=== PATIENT | male | born 1955 | race Two or more races ===

== ENCOUNTER 2021-04-25 13:30 | Outpatient (CLI) | payer MEDICARE | END 2021-04-25 23:59 | disposition home or self-care (01) | LOC: MSC 13:30 | PROVIDERS: ATTEND Anesthesiology | DX: M51.26 Other intervertebral disc displacement, lumbar region (principal); M47.27 Other spondylosis with radiculopathy, lumbosacral region; M40.299 Other kyphosis, site unspecified; M62.830 Muscle spasm of back; G89.4 Chronic pain syndrome; M25.561 Pain in right knee; M25.562 Pain in left knee; Z79.891 Long term (current) use of opiate analgesic; Z79.1 Long term (current) use of non-steroidal anti-inflammatories (NSAID); F17.210 Nicotine dependence, cigarettes, uncomplicated ==

== ENCOUNTER 2021-05-30 13:10 | Outpatient (CLI) | payer MEDICARE | END 2021-05-30 23:59 | disposition home or self-care (01) | LOC: MSC 13:10 | PROVIDERS: ATTEND Anesthesiology | DX: M51.26 Other intervertebral disc displacement, lumbar region (principal); M47.27 Other spondylosis with radiculopathy, lumbosacral region; M40.299 Other kyphosis, site unspecified; M62.830 Muscle spasm of back; G89.4 Chronic pain syndrome; M25.561 Pain in right knee; M25.562 Pain in left knee; Z79.891 Long term (current) use of opiate analgesic; Z79.1 Long term (current) use of non-steroidal anti-inflammatories (NSAID) ==

== ENCOUNTER 2021-07-04 13:00 | Outpatient (CLI) | payer MEDICARE | END 2021-07-04 23:59 | disposition home or self-care (01) | LOC: MSC 13:00 | PROVIDERS: ATTEND Anesthesiology | DX: M51.26 Other intervertebral disc displacement, lumbar region (principal); M47.27 Other spondylosis with radiculopathy, lumbosacral region; M40.299 Other kyphosis, site unspecified; M62.830 Muscle spasm of back; G89.4 Chronic pain syndrome; M25.562 Pain in left knee; M25.561 Pain in right knee; Z79.891 Long term (current) use of opiate analgesic ==

== ENCOUNTER 2021-08-08 11:37 | Outpatient (CLI) | payer MEDICARE | END 2021-08-08 23:59 | disposition home or self-care (01) | LOC: MSC 11:37 | PROVIDERS: ATTEND Anesthesiology | DX: G89.4 Chronic pain syndrome (principal); M25.561 Pain in right knee; Z99.89 Dependence on other enabling machines and devices; M51.26 Other intervertebral disc displacement, lumbar region; M47.27 Other spondylosis with radiculopathy, lumbosacral region; M40.299 Other kyphosis, site unspecified; M62.830 Muscle spasm of back; M25.562 Pain in left knee; F25.9 Schizoaffective disorder, unspecified; Z79.1 Long term (current) use of non-steroidal anti-inflammatories (NSAID); Z79.891 Long term (current) use of opiate analgesic ==

== ENCOUNTER 2021-09-05 13:10 | Outpatient (CLI) | payer MEDICARE | END 2021-09-05 23:59 | disposition home or self-care (01) | LOC: MSC 13:10 | PROVIDERS: ATTEND Anesthesiology | DX: M51.26 Other intervertebral disc displacement, lumbar region (principal); M47.27 Other spondylosis with radiculopathy, lumbosacral region; M40.299 Other kyphosis, site unspecified; M62.830 Muscle spasm of back; G89.4 Chronic pain syndrome; M25.561 Pain in right knee; M25.562 Pain in left knee; F17.210 Nicotine dependence, cigarettes, uncomplicated; Z79.891 Long term (current) use of opiate analgesic; Z79.1 Long term (current) use of non-steroidal anti-inflammatories (NSAID) ==

== ENCOUNTER → 2021-10-03 | Outpatient (CLI) | payer MEDICARE | END | disposition home or self-care (01) | LOC: MSC 13:30 | PROVIDERS: ATTEND Anesthesiology | DX: M51.26 Other intervertebral disc displacement, lumbar region (principal); M47.27 Other spondylosis with radiculopathy, lumbosacral region; M40.299 Other kyphosis, site unspecified; M62.830 Muscle spasm of back; G89.4 Chronic pain syndrome; M25.561 Pain in right knee; M25.562 Pain in left knee; F17.210 Nicotine dependence, cigarettes, uncomplicated; Z79.891 Long term (current) use of opiate analgesic ==

== ENCOUNTER → 2021-10-31 | Outpatient (CLI) | payer MEDICARE | END | disposition home or self-care (01) | LOC: MSC 13:00 | PROVIDERS: ATTEND Anesthesiology | DX: M51.26 Other intervertebral disc displacement, lumbar region (principal); M47.27 Other spondylosis with radiculopathy, lumbosacral region; M40.299 Other kyphosis, site unspecified; M62.830 Muscle spasm of back; G89.4 Chronic pain syndrome; M25.561 Pain in right knee; M25.562 Pain in left knee; F20.9 Schizophrenia, unspecified; Z76.0 Encounter for issue of repeat prescription; Z79.891 Long term (current) use of opiate analgesic ==

== ENCOUNTER 2021-12-12 10:55 | Outpatient (CLI) | payer MEDICARE | END 2021-12-12 23:59 | disposition home or self-care (01) | LOC: MSC 10:55 | PROVIDERS: ATTEND Anesthesiology | DX: M51.26 Other intervertebral disc displacement, lumbar region (principal); M47.27 Other spondylosis with radiculopathy, lumbosacral region; M40.299 Other kyphosis, site unspecified; M62.830 Muscle spasm of back; G89.4 Chronic pain syndrome; M25.561 Pain in right knee; M25.562 Pain in left knee; Z79.891 Long term (current) use of opiate analgesic; Z79.1 Long term (current) use of non-steroidal anti-inflammatories (NSAID) ==

== ENCOUNTER 2022-01-09 11:30 | Outpatient (CLI) | payer MEDICARE | END 2022-01-09 23:59 | disposition home or self-care (01) | LOC: MSC 11:30 | PROVIDERS: ATTEND Anesthesiology | DX: M51.26 Other intervertebral disc displacement, lumbar region (principal); M47.27 Other spondylosis with radiculopathy, lumbosacral region; M40.299 Other kyphosis, site unspecified; M62.830 Muscle spasm of back; G89.4 Chronic pain syndrome; M25.561 Pain in right knee; M25.562 Pain in left knee; Z79.891 Long term (current) use of opiate analgesic; Z79.1 Long term (current) use of non-steroidal anti-inflammatories (NSAID) ==

== ENCOUNTER 2022-02-06 11:02 | Outpatient (CLI) | payer MEDICARE | END 2022-02-06 23:59 | disposition home or self-care (01) | LOC: MSC 11:02 | PROVIDERS: ATTEND Anesthesiology | DX: M51.26 Other intervertebral disc displacement, lumbar region (principal); M47.27 Other spondylosis with radiculopathy, lumbosacral region; M40.299 Other kyphosis, site unspecified; M62.830 Muscle spasm of back; G89.4 Chronic pain syndrome; M25.561 Pain in right knee; M25.562 Pain in left knee; Z79.891 Long term (current) use of opiate analgesic; Z79.1 Long term (current) use of non-steroidal anti-inflammatories (NSAID); F17.210 Nicotine dependence, cigarettes, uncomplicated ==

== ENCOUNTER 2022-03-06 11:45 | Outpatient (CLI) | payer MEDICARE | END 2022-03-06 23:59 | disposition home or self-care (01) | LOC: MSC 11:45 | PROVIDERS: ATTEND Anesthesiology | DX: M51.26 Other intervertebral disc displacement, lumbar region (principal); M47.27 Other spondylosis with radiculopathy, lumbosacral region; M40.299 Other kyphosis, site unspecified; M62.830 Muscle spasm of back; G89.4 Chronic pain syndrome; M25.561 Pain in right knee; M25.562 Pain in left knee; Z79.891 Long term (current) use of opiate analgesic; Z79.1 Long term (current) use of non-steroidal anti-inflammatories (NSAID); F17.210 Nicotine dependence, cigarettes, uncomplicated ==

== ENCOUNTER 2022-07-24 11:30 | Outpatient (CLI) | payer MEDICARE | END 2022-07-24 23:59 | disposition home or self-care (01) | LOC: MSC 11:30 | PROVIDERS: ATTEND Anesthesiology | DX: M51.26 Other intervertebral disc displacement, lumbar region (principal); M47.27 Other spondylosis with radiculopathy, lumbosacral region; M40.299 Other kyphosis, site unspecified; M62.830 Muscle spasm of back; G89.4 Chronic pain syndrome; M25.561 Pain in right knee; M25.562 Pain in left knee; Z76.0 Encounter for issue of repeat prescription; Z79.891 Long term (current) use of opiate analgesic; Z79.1 Long term (current) use of non-steroidal anti-inflammatories (NSAID); Z79.899 Other long term (current) drug therapy ==

== ENCOUNTER 2022-09-18 11:00 | Outpatient (CLI) | payer MEDICARE | END 2022-09-18 23:59 | disposition home or self-care (01) | LOC: MSC 11:00 | PROVIDERS: ATTEND Anesthesiology | DX: M51.26 Other intervertebral disc displacement, lumbar region (principal); M47.27 Other spondylosis with radiculopathy, lumbosacral region; M40.299 Other kyphosis, site unspecified; M62.830 Muscle spasm of back; G89.4 Chronic pain syndrome; M25.561 Pain in right knee; M25.562 Pain in left knee; Z79.891 Long term (current) use of opiate analgesic; Z79.1 Long term (current) use of non-steroidal anti-inflammatories (NSAID) ==

== ENCOUNTER 2022-10-23 10:37 | Outpatient (CLI) | payer MEDICARE, OTHER | END 2022-10-23 23:59 | disposition home or self-care (01) | LOC: MSC 10:37 | PROVIDERS: ATTEND Anesthesiology | DX: G89.4 Chronic pain syndrome (principal); M51.26 Other intervertebral disc displacement, lumbar region; M47.27 Other spondylosis with radiculopathy, lumbosacral region; M40.299 Other kyphosis, site unspecified; M62.830 Muscle spasm of back; M25.561 Pain in right knee; M25.562 Pain in left knee; Z76.0 Encounter for issue of repeat prescription; Z79.891 Long term (current) use of opiate analgesic; Z79.1 Long term (current) use of non-steroidal anti-inflammatories (NSAID) ==

== ENCOUNTER 2022-11-13 10:20 | Outpatient (CLI) | payer MEDICARE, OTHER | END 2022-11-13 23:59 | disposition home or self-care (01) | LOC: MSC 10:20 | PROVIDERS: ATTEND Anesthesiology | DX: G89.4 Chronic pain syndrome (principal); M47.27 Other spondylosis with radiculopathy, lumbosacral region; M51.26 Other intervertebral disc displacement, lumbar region; M40.299 Other kyphosis, site unspecified; M62.830 Muscle spasm of back; M25.561 Pain in right knee; M25.562 Pain in left knee; F17.210 Nicotine dependence, cigarettes, uncomplicated; Z79.891 Long term (current) use of opiate analgesic; Z79.1 Long term (current) use of non-steroidal anti-inflammatories (NSAID) ==

== ENCOUNTER 2022-12-11 11:20 | Outpatient (CLI) | payer MEDICARE, OTHER | END 2022-12-11 23:59 | disposition home or self-care (01) | LOC: MSC 11:20 | PROVIDERS: ATTEND Anesthesiology | DX: G89.4 Chronic pain syndrome (principal); M51.26 Other intervertebral disc displacement, lumbar region; M47.27 Other spondylosis with radiculopathy, lumbosacral region; M40.299 Other kyphosis, site unspecified; M62.830 Muscle spasm of back; M25.561 Pain in right knee; M25.562 Pain in left knee; Z79.891 Long term (current) use of opiate analgesic; Z79.1 Long term (current) use of non-steroidal anti-inflammatories (NSAID); F17.210 Nicotine dependence, cigarettes, uncomplicated ==

== ENCOUNTER 2023-01-01 09:48 | Outpatient (CLI) | payer MEDICARE, OTHER | END 2023-01-01 23:59 | disposition home or self-care (01) | LOC: MSC 09:48 | PROVIDERS: ATTEND Anesthesiology | DX: G89.4 Chronic pain syndrome (principal); M51.26 Other intervertebral disc displacement, lumbar region; M47.27 Other spondylosis with radiculopathy, lumbosacral region; M40.299 Other kyphosis, site unspecified; M62.830 Muscle spasm of back; M25.561 Pain in right knee; M25.562 Pain in left knee; Z79.891 Long term (current) use of opiate analgesic; Z79.1 Long term (current) use of non-steroidal anti-inflammatories (NSAID); F17.210 Nicotine dependence, cigarettes, uncomplicated ==

== ENCOUNTER 2023-01-29 09:28 | Outpatient (CLI) | payer MEDICARE, OTHER | END 2023-01-29 23:59 | disposition home or self-care (01) | LOC: MSC 09:28 | PROVIDERS: ATTEND Anesthesiology | DX: G89.4 Chronic pain syndrome (principal); M51.26 Other intervertebral disc displacement, lumbar region; M47.27 Other spondylosis with radiculopathy, lumbosacral region; M40.299 Other kyphosis, site unspecified; M62.830 Muscle spasm of back; M25.561 Pain in right knee; M25.562 Pain in left knee; Z79.891 Long term (current) use of opiate analgesic; Z79.1 Long term (current) use of non-steroidal anti-inflammatories (NSAID); F17.210 Nicotine dependence, cigarettes, uncomplicated ==

== ENCOUNTER 2023-03-05 08:45 | Outpatient (CLI) | payer MEDICARE, OTHER | END 2023-03-05 23:59 | disposition home or self-care (01) | LOC: MSC 08:45 | PROVIDERS: ATTEND Anesthesiology | DX: G89.4 Chronic pain syndrome (principal); M51.26 Other intervertebral disc displacement, lumbar region; M47.27 Other spondylosis with radiculopathy, lumbosacral region; M40.299 Other kyphosis, site unspecified; M62.830 Muscle spasm of back; M25.561 Pain in right knee; M25.562 Pain in left knee; Z79.891 Long term (current) use of opiate analgesic ==

== ENCOUNTER 2023-04-02 08:46 | Outpatient (CLI) | payer MEDICARE, OTHER | END 2023-04-02 23:59 | disposition home or self-care (01) | LOC: MSC 08:46 | PROVIDERS: ATTEND Anesthesiology | DX: G89.4 Chronic pain syndrome (principal); M51.26 Other intervertebral disc displacement, lumbar region; M47.27 Other spondylosis with radiculopathy, lumbosacral region; M40.299 Other kyphosis, site unspecified; M62.830 Muscle spasm of back; M25.561 Pain in right knee; M25.562 Pain in left knee; Z79.891 Long term (current) use of opiate analgesic ==

== ENCOUNTER 2023-04-30 08:42 | Outpatient (CLI) | payer MEDICARE, OTHER | END 2023-04-30 23:59 | disposition home or self-care (01) | LOC: MSC 08:42 | PROVIDERS: ATTEND Anesthesiology | DX: G89.4 Chronic pain syndrome (principal); M51.26 Other intervertebral disc displacement, lumbar region; M47.27 Other spondylosis with radiculopathy, lumbosacral region; M40.299 Other kyphosis, site unspecified; M62.830 Muscle spasm of back; M25.561 Pain in right knee; M25.562 Pain in left knee; Z79.891 Long term (current) use of opiate analgesic; Z79.1 Long term (current) use of non-steroidal anti-inflammatories (NSAID); Z79.899 Other long term (current) drug therapy ==